=== PATIENT | male | born 1980 | race Caucasian/White ===

== ENCOUNTER → 2018-04-18 | Outpatient (REF) ==
[~2018-04-18] MED LIST: AMOXICILLIN/CL875 MG OR; CIPRODEX1 ML AU; NO; TRAMADOL HCL50 MG PO
== END | disposition home or self-care (01) | DRG 951 ==
LOC: LABSPEC 10:52
PROVIDERS: ATTEND Nurse Practitioner Family
DX: Z02.1 Encounter for pre-employment examination (principal)